=== PATIENT | male | born 1970 | race Caucasian/White ===

== ENCOUNTER 2019-03-23 21:58 | Observation (INO) | payer SELFPAY ==
[2019-03-23] MEDS ORDERED: ASPIRIN 81 MG TABLET, CHEWABLE PO ONE (22:11)
--- NOTE | 2019-03-23 22:13 | ER Document Report ---
ED Medical Screen (RME) - General Stated Complaint: CHEST PAIN Time Seen by Provider: 03/23/19 22:11 Mode of Arrival: Wheelchair Information source: Patient Notes: 49-year-old male with history of cardiac disease multiple stent placements open heart surgery diabetes presents to the emergency department with left-sided chest pain nausea with pain that radiates down his left arm and up his left neck that started approximately 15 minutes ago. Reports last OR in July. I have greeted and performed a rapid initial assessment of this patient. A comprehensive ED assessment and evaluation of the patient, analysis of test results and completion of the medical decision making process will be conducted by additional ED providers. Dictation of this chart was performed using voice recognition software; therefore, there may be some unintended grammatical errors.
--- NOTE | 2019-03-23 23:16 | RADIOLOGY REPORT (SQ) ---
EXAM DESCRIPTION: XR CHEST 1 VIEW COMPLETED DATE/TME: 03/23/2019 22:11 CLINICAL HISTORY: 49 years, Male, cp, sob COMPARISON: None. NUMBER OF VIEWS: 2 TECHNIQUE: Frontal view chest LIMITATIONS: None. FINDINGS: Heart size is normal. Sternotomy wires are present. The uppermost wires are fractured. The lungs are hyperinflated but clear. There is no pneumothorax IMPRESSION: Underlying hyperinflation. Lungs are clear copyright 2010 [employer]- All Rights Reserved
[2019-03-23 23:32] LABS: ABSOLUTE EOSINOPHILS # (AUTO) 0.3 10^3/uL (0.0-0.6); ABSOLUTE MONOCYTES (AUTO) 0.9 10^3/uL (0.1-1.4); ABSOLUTE NEUT (AUTO) 7.2 10^3/uL (1.7-8.2); BASOPHILS % (AUTO) 0.3 % (0-2); EOSINOPHILS % (AUTO) 2.1 % (0-6); HEMATOCRIT 46.9 % (37.9-51.0); HEMOGLOBIN 16.1 g/dL (13.5-17.0); LYMPHOCYTES % (AUTO) 32.3 % (13-45); MEAN CORPUSCULAR HEMOGLOBIN 29.2 pg (27.0-33.4); MEAN CORPUSCULAR HGB CONC 34.3 g/dL (32.0-36.0); MEAN CORPUSCULAR VOLUME 85 fl (80-97); MONOCYTES % (AUTO) 6.9 % (3-13); PLATELET COUNT 214 10^3/uL (150-450); RED BLOOD COUNT 5.52 10^6/uL (4.35-5.55); RED CELL DISTRIBUTION WIDTH 14.3 % (11.5-14.0); SEGMENTED NEUTROPHILS % (AUTO) 58.4 % (42-78); TOTAL CELLS COUNTED % (AUTO) 100 %; WHITE BLOOD COUNT 12.3 10^3/uL (4.0-10.5)
[2019-03-23 23:44] LABS: INTERNATIONAL RATION (INR) 1.02; PROTHROMBIN TIME 13.5 SEC (11.4-15.4)
[2019-03-23] MEDS: NITROGLYCERIN 0.4 MG/TAB 25 TAB/BOTTLE SL PRN (23:47)
[2019-03-23 23:49] LABS: ALBUMIN 4.1 g/dL (3.5-5.0); ALKALINE PHOSPHATASE 111 U/L (38-126); ANION GAP 12 (5-19); ASPARTATE AMINO TRANSFERASE 18 U/L (17-59); BILIRUBIN,DIRECT 0.1 mg/dL (0.0-0.4); BILIRUBIN,TOTAL 0.4 mg/dL (0.2-1.3); BLOOD UREA NITROGEN 8 mg/dL (7-20); CALCIUM 9.9 mg/dL (8.4-10.2); CARBON DIOXIDE 22 mmol/L (22-30); CHLORIDE 104 mmol/L (98-107); CREATINE KINASE 48 U/L (55-170); GLUCOSE 260 mg/dL (75-110); POTASSIUM 3.6 mmol/L (3.6-5.0); TOTAL PROTEIN 7.3 g/dL (6.3-8.2)
[2019-03-23 23:57] LABS: CREATINE KINASE MB 0.49 ng/mL (<4.55)
[2019-03-23 23:58] LABS: TROPONIN I < 0.012 ng/mL
[2019-03-24] MEDS: NITROGLYCERIN 0.4 MG/TAB 25 TAB/BOTTLE SL PRN
--- NOTE | 2019-03-24 00:10 | RADIOLOGY REPORT (SQ) ---
EXAM DESCRIPTION: CT HEAD WITHOUT IV CONTRAST COMPLETED DATE/TME: 03/23/2019 23:24 CLINICAL HISTORY: numbness CVA COMPARISON: None available TECHNIQUE: Axial CT of the head obtained from the skull apex to the skull base without contrast. FINDINGS: No acute intracranial hemorrhage identified. No mass, mass effect, shift of the midline, abnormal extra-axial fluid collection or CT evidence of acute ischemic change identified. The ventricular system is unremarkable. No acute abnormalities of the supratentorial white matter, basal ganglia, cerebellum, or brainstem. Mucosal thickening of the left maxillary sinus. Mastoid air cells are well aerated. No skull fracture identified. Visualized orbits and globes are unremarkable. DLP:990.56 mGy-cm IMPRESSION: 1. No acute intracranial abnormality identified. This exam was performed according to our departmental dose-optimization program, which includes automated exposure control, adjustment of the mA and/or kV according to patient size and/or use of iterative reconstruction technique. Reserved
[2019-03-24] MEDS ORDERED: NITROGLYCERIN 2% OINTMENT 1 GM PACKET TP ONE (00:35)
--- NOTE | 2019-03-24 00:41 | ER Document Report ---
ED General - General Chief Complaint: Chest Pain Stated Complaint: CHEST PAIN Time Seen by Provider: 03/23/19 22:11 Mode of Arrival: Wheelchair TRAVEL OUTSIDE OF THE [place] IN LAST 30 DAYS: No - HPI Notes: This is a 49-year-old gentleman with a history of coronary artery disease who presents today with a complaint of substernal chest pain that started around 9:00. Patient states that his pain was radiating down his left arm, associated with nausea and dyspnea. Patient states this feels like his heart pain. He states that he has had 8 stents in the bypass in the past before. Patient also complains of numbness in his left upper and lower extremities. Symptoms are started around the same time. He denies any focal weakness. He denies any speech changes. He denies any visual changes. He denies any headache. He describes the symptoms as moderate. There are no obvious aggravating or relieving factors. He is visiting from [place]. - Related Data Allergies/Adverse Reactions: No Known Allergies Allergy (Unverified 03/23/19 22:21) Past Medical History - General Information source: Patient - Social History Smoking Status: Current Every Day Smoker Chew tobacco use (# tins/day): No Frequency of alcohol use: None Drug Abuse: Marijuana Family History: Hypertension Patient has suicidal ideation: No Patient has homicidal ideation: No Review of Systems - Review of Systems Cardiovascular: Chest pain. denies: Palpitations, Heart racing Respiratory: denies: Cough Gastrointestinal: denies: Abdominal pain, Diarrhea, Vomiting Neurological/Psychological: Numbness, Tingling. denies: Paralysis, Headaches, Speech impairment -: Yes All other systems reviewed and negative Physical Exam - Vital signs Vitals: Temp Pulse Resp BP Pulse Ox 97.8 F 84 20 159/101 H 99 03/23/19 22:13 03/23/19 22:13 03/23/19 22:13 03/23/19 22:13 03/23/19 22:13 - General General appearance: Appears well, Alert - Respiratory Respiratory status: No respiratory distress Chest status: Nontender Breath sounds: Normal Chest palpation: Normal - Cardiovascular Rhythm: Regular Heart sounds: Normal auscultation Murmur: No - Abdominal Inspection: Normal Distension: No distension Bowel sounds: Normal Tenderness: Nontender Organomegaly: No organomegaly - Back Back: Normal, Nontender - Neurological Neuro grossly intact: Yes Cognition: Normal Orientation: AAOx4 Sharon Coma Scale Eye Opening: Spontaneous Sharon Coma Scale Verbal: Oriented Mcintyre Coma Scale Motor: Obeys Commands Sharon Coma Scale Total: 15 Speech: Normal Cranial nerves: Normal Motor strength normal: LUE, RUE, LLE, RLE Sensory: Altered light touch - There is subjective decreased sensation of the left upper and lower extremity. No other focal neurologic findings. - Skin Skin Temperature: Warm Skin Moisture: Dry Skin Color: Normal Course - Re-evaluation Re-evalutation: 03/24/19 00:39 Differential diagnosis includes acute coronary syndrome versus atypical chest pain versus anxiety. 2. Question CVA. Patient would not be a candidate for TPA given low NIHSS of 1. Will get CT scan. Will need to rule out acute coronary syndrome. EKG shows normal sinus rhythm at 87 bpm. Normal axis. Normal intervals. No acute injury pattern. 00:40 Patient reevaluated. He is pain-free after nitroglycerin. Labs and image reviewed and discussed. 03/24/19 01:03 Patient's care discussed with Dr. Mcdonald. Patient will be admitted for ACS rule out. - Vital Signs Vital signs: Temp Pulse Resp BP Pulse Ox 97.8 F 84 20 164/90 H 99 03/23/19 22:13 03/23/19 22:13 03/24/19 00:01 03/24/19 00:01 03/24/19 00:01 - Laboratory Result Diagrams: 03/23/19 22:49 03/23/19 22:49 Laboratory results interpreted by me: 03/23/19 03/23/19 22:49 22:49 WBC 12.3 H RDW 14.3 H Glucose 260 H Creatine Kinase 48 L Discharge - Discharge Clinical Impression: Precordial chest pain, Paresthesias Condition: Stable Disposition: ADMITTED OBSERVATION Admitting Provider: Tamara (Hospitalist) Unit Admitted: [facility] ED NIH Stroke Scale - NIH Stroke Scale *: 1. NIH scale should be completed with appropriate accompanying assessment too ls. *: 2. The NIH should reflect what the patient is capable of doing and should not be coached by the clinician. 1a. Level of Consciousness: 0=Alert;keenly responsive -: 1=Drowsy -: 2=Obtunded -: 3=Coma/unresponsive or reflex to noxious stimuli. 1a. Responses: 0 1b. Orientation Questions: a. What month is it? -: b. How old are you? -: 0=Answers both questions correctly. -: 1=Answers one question correctly or patient is intubated or has orotracheal trauma. -: 2=Answers neither question correctly. 1b. Responses: 0 1c. Response to commands: a. Open and close eyes? -: b. 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 -: Credit is given despite weakness. Demonstration of task is permitted. Substitute command if hands cannot be used. -: 0=Performs both tasks correctly -: 1=Performs one task correctly -: 2=Performs neither task correctly 1c. Responses: 0 2. Gaze: Establish eye contact and instruct patient to "Follow my finger" -: 0=Normal -: 1=Partial gaze palsy. Gaze is abnormal in one or both eyes, but where forced deviation or total gaze paresis is not present. -: 2=Forced deviation or total gaze paresis. 2. Responses: 0 3. Visual Blanco: Sees fingers in all four quadrants. -: 0=No visual loss. -: 1=Partial hemianopsia. -: 2=Complete hemianopsia. -: 3=Bilateral hemianopsia (including Cortical blindness) 3. Responses: 0 4. Facial Movement: Instruct patient to: -: a. Show me your teeth -: b. Raise your eyebrows -: c. Close your eyes -: d. Smile -: 0=Normal symmetrical movement -: 1=Minor paralysis (flattened nasolabial fold, asymmetry on smiling). -: 2=Partial paralysis (total or near total paralysis of lower face). -: 3=Complete paralysis of upper and lower face 4. Responses: 0 5. Motor functions (left arm): Alternate sides and extend each arm with palms down (90 degrees if sitting or 45 degrees for supine). -: 0=No drift;limb holds for full 10 seconds. -: 1=Drift; limb holds but drifts down before full 10 seconds, but does not hit bed. -: 2=Some effort against gravity; limb cannot get to or maintain position. -: 3=No effort against gravity; limb falls. -: 4=No movement. -: UN=Amputation, joint fusion, explain in comments. 5. Responses (left arm): 0 5. Motor Functions (right arm): Alternate sides and extend each arm with palms down (90 degrees if sitting or 45 degrees for supine). -: 0=No drift;limb holds for full 10 seconds. -: 1=Drift; limb holds but drifts down before full 10 seconds, but does not hit bed. -: 2=Some effort against gravity; limb cannot get to or maintain position. -: 3=No effort against gravity; limb falls. -: 4=No movement. -: UN=Amputation, joint fusion, explain in comments. 5. Responses (right arm): 0 6. Motor Functions (left leg): With patient lying supine, alternate sides and extend each leg (30 degrees always while supine). -: 0=No drift, leg holds position for full 5 seconds -: 1=Drift; leg falls before full 5 seconds but does not hit bed. -: 2=Some effort against gravity, leg falls to bed but some effort against gravity. -: 3=No effort against gravity, leg falls to bed immediately. -: 4=No movement. -: UN=Amputation, joint fusion; explain in comments. 6. Responses (left leg): 0 6. Motor Functions (right leg): With patient lying supine, alternate sides and extend each leg (30 degrees always while supine). -: 0=No drift, leg holds position for full 5 seconds -: 1=Drift; leg falls before full 5 seconds but does not hit bed. -: 2=Some effort against gravity, leg falls to bed but some effort against gravity. -: 3=No effort against gravity, leg falls to bed immediately. -: 4=No movement. -: UN=Amputation, joint fusion; explain in comments. 6. Responses (right leg): 0 7. Limb Ataxia: With eyes open instruct patient to: -: a. "Touch your finger to your nose". -: b. "Touch your heel to your bolanos" -: 0=Absent -: 1=Present in one limb. -: 2=Present in two limbs. -: UN=Amputation or joint fusion; explain in comments. 7. Responses: 0 8. Sensory: Test sensation using pinprick or noxious stimuli. Test as many body parts as possible. -: 0=Normal;no sensory loss -: 1=Mile to moderate sensory loss (patient feels pin prick but is less sharp on affected side). -: 2=Severe or total sensory loss. 8. Responses: 1 9. Best Language: Instruct patient to: -: a. "Describe what you see in this picture." -: b. "Name the items in this picture." -: c. "Read these sentences." -: 0=No aphasia, normal -: 1=Mild to moderate aphasia. -: 2=Severe aphasia -: 3=Mute, global aphasia, no usable speech or auditory comprehension. 9. Responses: 0 10. Articulation, Dysarthia: Instruct patient to: -: "Read these words" or "Repeat these words" -: 0=Normal -: 1=Mild to moderate; patient may slur some words but can be understood without difficulty. -: 2=Severe; patients speech so slurred as to be unintelligible in the absence of dysphasia. -: UN=Intubated or other physical barrier, explain in comments. 10. Responses: 0 11. Extinction or inattention: 0=No abnormality -: 1= Visual, tactile, auditory, spatial, or personal inattention or extinction to bilateral simulation in one or the sensory modalities. -: 2=Profound cherelle-inattention or cherelle-inattention to more than one modality; does not recognize own hand. 11. Responses: 0 Total Score: 1
[2019-03-24] MEDS ORDERED: ONDANSETRON HCL INJ/PF 4 MG/2 ML SDV IV PRN (01:21)
[2019-03-24] MEDS ORDERED: DOCUSATE SODIUM 100 MG CAPSULE PO PRN (01:21)
[2019-03-24] MEDS ORDERED: MAGNESIUM HYDROXIDE SUSP 30 ML UDCUP PO PRN (01:21)
[2019-03-24] MEDS ORDERED: ACETAMINOPHEN 325 MG TABLET PO PRN (01:21)
[2019-03-24] MEDS ORDERED: TEMAZEPAM 15 MG CAPSULE PO PRN (01:21)
[2019-03-24] MEDS ORDERED: ONDANSETRON 4 MG TAB.RAPDIS PO PRN (01:21)
[2019-03-24] MEDS ORDERED: MORPHINE SULFATE 10 MG/ML INJ IV PRN ×2 (01:28→01:36)
[2019-03-24] MEDS ORDERED: LEVALBUTEROL HCL NEB 0.63 MG/3 ML AMPUL NEB PRN (01:28)
[2019-03-24] MEDS ORDERED: HYDRALAZINE HCL INJ/PF 20 MG/1 ML SDV IV PRN (01:28)
[2019-03-24] MEDS ORDERED: NITROGLYCERIN 0.4 MG/TAB 25 TAB/BOTTLE SL PRN ×2 (01:28→14:15)
[2019-03-24] MEDS ORDERED: NICOTINE 21 MG/24 HR PATCH.TD24 TD PRN (01:28)
[2019-03-24] MEDS ORDERED: DEXTROSE 50%-WATER 25 GM/50 ML DISP.SYRIN IV PRN ×2 (01:37)
[2019-03-24] MEDS ORDERED: GLUCAGON,HUMAN RECOMB 1 MG INJ IM PRN (01:37)
[2019-03-24] MEDS ORDERED: DEXTROSE 40% GEL 15 GM TUBE PO PRN ×2 (01:37)
[2019-03-24 02:53] LABS: CREATINE KINASE MB 0.53 ng/mL (<4.55)
[2019-03-24 03:00] LABS: TROPONIN I < 0.012 ng/mL
[2019-03-24] MEDS: MORPHINE SULFATE 10 MG/ML INJ IV PRN ×4 (03:08→15:35)
[2019-03-24] MEDS: INSULIN REG, HUMAN 100 UNIT/ML 3 ML VIAL (PYX) SUBCUT PRN ×2 (03:09→14:59)
--- NOTE | 2019-03-24 04:46 | PDOC H&P ---
History of Present Illness Admission Date/PCP: 03/24/2019 01:02 No local PCP Patient complains of: Chest pain History of Present Illness: ARIANE KC is a 49 year old male who presented to the emergency room with acute chest pain beginning at 2100 hrs. on 03/23/2019. Patient admits abrupt ons et of a constant, severe heavy pressure-like pain in his left chest radiating to his left shoulder then up the left side of his neck and down his left arm. Chest pain was accompanied by nausea and dyspnea. He denies other associated signs or symptoms. He does admit to the accompanying symptoms of numbness in his left face, left upper extremity and left lower extremity without weakness, beginning at approximately the same time he experienced the initial chest pain. He admits that the chest pain was very similar to the heart pain he has had with previous cardiac events. He has not identified any aggravating or ameliorating factors for his chest pain. In the emergency room patient was treated with nitroglycerin and had rapid relief of his chest pain. Initial cardiac enzymes and electrocardiogram evaluation showed no evidence of acute cardiac injury or ischemia. A CT scan of the patient's head revealed no evidence for acute stroke or intracranial hemorrhage. Patient was subsequently admitted to observation status for further evaluation and treatment. Past Medical History Cardiac Medical History: Reports: Coronary Artery Disease, Myocardial Infarction, Hyperlipidema, Hypertension Pulmonary Medical History: Denies: Asthma, Chronic Obstructive Pulmonary Disease (COPD) EENT Medical History: Denies: Cataracts, Ears - Hearing aids Neurological Medical History: Reports: Other - Chronic neuropathy in hands and feet bilaterally (chronic pain syndrome) Denies: Hemorrhagic CVA, Ischemic CVA, Seizures Endocrine Medical History: Reports: Diabetes Mellitus Type 2 Denies: Diabetes Mellitus Type 1, Hyperthyroidism, Hypothyroidism Renal/ Medical History: Denies: Chronic Kidney Disease, Nephrolithiasis Malignancy Medical History: Reports: None GI Medical History: Denies: Cirrhosis, Hepatitis Musculoskeltal Medical History: Denies: Arthritis, Gout Skin Medical History: Denies: Eczema, Psoriasis Psychiatric Medical History: Reports: Tobacco Dependency Denies: Alcohol Dependency, Substance Abuse Traumatic Medical History: Reports: None Hematology: Denies: Anemia, Bleeding Tendencies Infectious Medical History: Reports: None Past Surgical History Past Surgical History: Reports: Appendectomy, Cardiac Catheterization, Coronary Artery Bypass Graft, Coronary Stent - X 8, Herniorrhaphy - Incarcerated left inguinal hernia, Other - Urethral stricture Social History Information Source: Patient Lives with: Spouse/Significant other Smoking Status: Current Every Day Smoker Electronic Cigarette use?: No Frequency of Alcohol Use: Rare Hx Recreational Drug Use: No - Medical marijuana Drugs: Marijuana - Uses medical marijuana on a daily basis for control of chronic pain Hx Prescription Drug Abuse: No - Advance Directive Resuscitation Status: Full Code Surrogate healthcare decision maker:: Yaz Kc Family History Family History: CAD, CVA, DM, Hyperlipidemia, Hypertension, Malignancy, Other - Alzheimer's dementia Parental Family History Reviewed: Yes Children Family History Reviewed: No Sibling(s) Family History Reviewed.: Yes Medication/Allergy Allergies/Adverse Reactions: No Known Allergies Allergy (Unverified 03/23/19 22:21) Review of Systems Constitutional: ABSENT: chills, fever(s) Eyes: ABSENT: visual disturbances, other - Eye pain Ears: ABSENT: hearing changes, other - Ear pain Nose, Mouth, and Throat: ABSENT: mouth pain, sore throat Cardiovascular: PRESENT: as per HPI, chest pain. ABSENT: dyspnea on exertion, edema, orthropnea, palpitations Respiratory: PRESENT: dyspnea. ABSENT: cough Gastrointestinal: PRESENT: as per HPI, nausea. ABSENT: abdominal pain, constipation, diarrhea, vomiting Genitourinary: ABSENT: dysuria, hematuria Musculoskeletal: ABSENT: back pain, joint swelling, muscle weakness Integumentary: ABSENT: pruritus, rash Neurological: PRESENT: as per HPI, numbness - Left face, upper and lower extremities. ABSENT: confusion, convulsions, focal weakness, memory loss, syncope Psychiatric: ABSENT: anxiety, depression Endocrine: ABSENT: cold intolerance, heat intolerance Hematologic/Lymphatic: ABSENT: easy bleeding, easy bruising Allergic/Immunologic: ABSENT: seasonal rhinorrhea Physical Exam Vital Signs: Temp Pulse Resp BP Pulse Ox 97.8 F 84 20 164/90 H 99 03/23/19 22:13 03/23/19 22:13 03/24/19 00:01 03/24/19 00:01 03/24/19 00:01 Intake & Output 03/22/19 03/23/19 03/24/19 23:59 23:59 23:59 Weight 101 kg General appearance: PRESENT: no acute distress, cooperative Head exam: PRESENT: atraumatic, normocephalic Eye exam: PRESENT: conjunctiva pink. ABSENT: conjunctival injection, scleral icterus Ear exam: PRESENT: normal external ear exam. ABSENT: bleeding, drainage Mouth exam: PRESENT: dry mucosa, neck supple Neck exam: ABSENT: JVD, thyromegaly, tracheal deviation Respiratory exam: PRESENT: clear to auscultation olinda, symmetrical, unlabored Cardiovascular exam: PRESENT: RRR. ABSENT: clicks, gallop, rubs Pulses: PRESENT: normal radial pulses, normal dorsalis pedis pul Vascular exam: PRESENT: normal capillary refill. ABSENT: pallor GI/Abdominal exam: PRESENT: normal bowel sounds, soft Rectal exam: PRESENT: deferred Extremities exam: ABSENT: joint swelling, pedal edema Musculoskeletal exam: ABSENT: deformity, dislocation Neurological exam: PRESENT: alert, oriented to person, oriented to place, oriented to time, oriented to situation, CN II-XII grossly intact, motor sensory deficit - Subjective decrease in tactile and pain sensation on the left side (face, upper extremity, torso and lower extremity) Psychiatric exam: PRESENT: appropriate affect, normal mood Skin exam: PRESENT: dry, intact, warm. ABSENT: jaundice, rash, urticaria Results Laboratory Results: 03/23/19 22:49 03/23/19 22:49 03/23/19 03/23/19 22:49 22:49 WBC 12.3 H RBC 5.52 Hgb 16.1 Hct 46.9 MCV 85 MCH 29.2 MCHC 34.3 RDW 14.3 H Plt Count 214 Seg Neutrophils % 58.4 Sodium 138.0 Potassium 3.6 Chloride 104 Carbon Dioxide 22 Anion Gap 12 BUN 8 Creatinine 0.57 Est GFR ( Amer) > 60 Glucose 260 H Calcium 9.9 Total Bilirubin 0.4 AST 18 Alkaline Phosphatase 111 Total Protein 7.3 Albumin 4.1 03/23/19 03/23/19 22:49 22:49 Creatine Kinase 48 L CK-MB (CK-2) 0.49 Troponin I < 0.012 Impressions: Chest X-Ray 03/23/19 22:11 IMPRESSION: Underlying hyperinflation. Lungs are clear copyright 2011 [employer]- All Rights Reserved Head CT 03/23/19 23:24 IMPRESSION: 1. No acute intracranial abnormality identified. This exam was performed according to our departmental dose-optimization program, which includes automated exposure control, adjustment of the mA and/or kV according to patient size and/or use of iterative reconstruction technique. Reserved Assessment and Plan - Diagnosis (1) Precordial chest pain Is this a current diagnosis for this admission?: Yes (2) Left sided numbness Is this a current diagnosis for this admission?: Yes (3) Coronary artery disease Qualifiers: Coronary Disease-Associated Artery/Lesion type: [place] artery [place] vs. transplanted heart: [place] heart Associated angina: with unspecified angina Qualified Code(s): I25.119 - Atherosclerotic heart disease of [place] coronary artery with unspecified angina pectoris Is this a current diagnosis for this admission?: Yes (4) Diabetes mellitus type 2 in obese Is this a current diagnosis for this admission?: Yes (5) Hyperlipidemia Qualifiers: Hyperlipidemia type: unspecified Qualified Code(s): E78.5 - Hyperlipidemia, unspecified Is this a current diagnosis for this admission?: Yes (6) Tobacco use disorder, severe, dependence Is this a current diagnosis for this admission?: Yes - Plan Summary Summary: Patient is admitted observation status and will have serial cardiac enzymes performed to evaluate his chest pain. He will be on IMCU and will undergo serial neurologic evaluations for his left-sided numbness and an MRI will be obtained as soon as possible. A carotid Doppler study and echocardiogram will be obtained as part of the evaluation of the patient's left-sided numbness. Patient's chest pain will be treated with nitroglycerin and if needed morphine sulfate 2 to 4 mg IV every 2 hours on a as needed basis using a sliding scale for chest pain. A hemoglobin A1c, lipid profile and a thyroid profile will also be obtained. Further evaluation and treatment will be based upon the results of the aforementioned studies. Before meals and at bedtime Accu-Cheks will be obtained with sliding scale insulin for hyperglycemia and a hypoglycemic protocol in place. Patient will be continued on his usual medications as appropriate for his chronic medical problems. A nicotine replacement patch will be available for the patient's use. Smoking cessation is advised and counseled briefly at the bedside. - Time Time Spent with patient: 25-34 minutes Smoking Cessation Education: 3 to 10 minutes Medications reviewed and adjusted accordingly: Yes Anticipated discharge: Home - Inpatient Certification Based on my medical assessment, after consideration of the patient's comorbidities, presenting symptoms, or acuity I expect that the services needed warrant INPATIENT care.: No I certify that my determination is in accordance with my understanding of Medicare's requirements for reasonable and necessary INPATIENT services [42 CFR 412.3e].: No Medical Necessity: Need Close Monitoring Due to Risk of Patient Decompensation, Need For Continuous Telemetry Monitoring, Need for Neurological Checks
[2019-03-24] MEDS: HEPARIN SOD (PORCINE) 5,000 UNIT/ML 1 ML VIAL SUBCUT SCH ×2 (07:04→14:53)
--- NOTE | 2019-03-24 07:30 | EKG REPORT ---
SEVERITY:- ABNORMAL ECG - SINUS RHYTHM VENTRICULAR PREMATURE COMPLEX NONSPECIFIC IVCD : Confirmed by: Chandu Sahu MD 24-Mar-2019 07:29:20
[2019-03-24 09:00] LABS: CREATINE KINASE MB 0.54 ng/mL (<4.55); DIRECT LDL 74 mg/dL (<100)
[2019-03-24 09:04] LABS: TRIGLYCERIDES 667 mg/dL (<150)
[2019-03-24 09:07] LABS: TROPONIN I < 0.012 ng/mL
[2019-03-24] MEDS ORDERED: FAMOTIDINE 20 MG TABLET PO SCH (10:00)
[2019-03-24] MEDS ORDERED: LORAZEPAM INJ 2 MG/1 ML VIAL IV ONE (10:10)
--- NOTE | 2019-03-24 11:34 | RADIOLOGY REPORT (SQ) ---
EXAM DESCRIPTION: MRI HEAD WITHOUT COMPLETED DATE/TIME: 03/24/2019 11:15 am REASON FOR STUDY: Left arm and leg numbness COMPARISON: CT brain 03/23/2019 TECHNIQUE: Multiplanar imaging includes non-contrasted T1, T2, FLAIR, and diffusion with ADC map seq uences. Images stored on PACS. LIMITATIONS: None. FINDINGS: ANATOMY: N developmental o anomalies. Normal vascular flow voids. Pituitary fossa normal. CSF SPACES: Normal in size and contour. No hemorrhage. CEREBRUM: Sulci and gyri normal in size and contour. Normal white matter signal on FLAIR imaging. No evidence of hemorrhage, mass, or extraaxial fluid collection. POSTERIOR FOSSA: No signal alteration. No hemorrhage. No edema, masses or mass effect. Internal viet tory canals, cerebello-pontine angles, mastoids normal. DIFFUSION IMAGING: Negative for acute or sub-acute infarction. ORBITS: No masses. Globes normal. PARANASAL SINUSES: Circumferential mucous membrane thickening left maxillary sinus from pre-existing sinusitis. OTHER: No other significant finding. IMPRESSION: NORMAL MRI OF THE BRAIN WITHOUT INTRAVENOUS GADOLINIUM CONTRAST. EVIDENCE OF ACUTE STROKE: NO. TECHNICAL DOCUMENTATION: JOB ID: [id number] [employer]- All Rights Reserved Reading location - IP/workstation name: [email or web address]
[2019-03-24] MEDS ORDERED: INFLUENZA QUAD (6MOS+) 2019-20 VAC 0.5 ML SYR IM ONE (12:00)
--- NOTE | 2019-03-24 13:37 | RADIOLOGY REPORT (SQ) ---
EXAM DESCRIPTION: CAROTID DOPPLER COMPLETED DATE/TIME: 03/24/2019 1:19 pm REASON FOR STUDY: Left arm and leg numbness COMPARISON: None. TECHNIQUE: Grayscale ultrasound, Doppler velocity and spectra, and color Doppler images acquired of the extra-cranial carotid and vertebral arteries. Images stored on PACS. LIMITATIONS: None. FINDINGS: RIGHT CAROTID CCA Velocities: Within normal limits. ICA Velocities Peak systolic 86 cm/s. End diastolic 37 cm/s. Proximal ICA/CCA peak systolic ratio 1.5. There is plaque in the carotid bulb and proximal ICA. LEFT CAROTID CCA Velocities: Within normal limits. ICA Velocities Peak systolic 89 cm/s. End diastolic 30 a cm/s. Proximal ICA/CCA peak systolic ratio 1.1. Is plaque in the carotid bulb and proximal ICA. VERTEBRAL ARTERIES: Antegrade flow. Normal waveforms. SUBCLAVIAN ARTERIES: No finding. OTHER: No other significant finding. IMPRESSION: NO HEMODYNAMICALLY SIGNIFICANT STENOSIS. COMMENT: Quality ID #[id number]: Velocity criteria are extrapolated from the diameter data as defined by t he Society of Radiologists in Ultrasound Consensus Conference. Radiology 2003: 229; 340-346. TECHNICAL DOCUMENTATION: JOB ID: [id number] [employer]- All Rights Reserved Reading location - IP/workstation name: [email or web address]
--- NOTE | 2019-03-24 14:36 | PDOC DISCHARGE SUMMARY ---
Impression - Admit/DC Date/PCP Admission Date/Primary Care Provider: 03/24/19 01:18 Discharge Date: 03/24/19 - Discharge Diagnosis (1) Coronary artery disease Is this a current diagnosis for this admission?: Yes (2) Diabetes mellitus type 2 in obese Is this a current diagnosis for this admission?: Yes (3) Hyperlipidemia Is this a current diagnosis for this admission?: Yes (4) Left sided numbness Is this a current diagnosis for this admission?: Yes (5) Paresthesias Is this a current diagnosis for this admission?: Yes (6) Tobacco use disorder, severe, dependence Is this a current diagnosis for this admission?: Yes - Assessment Summary: Patient is admitted observation status and will have serial cardiac enzymes performed to evaluate his chest pain. He will be on IMCU and will undergo serial neurologic evaluations for his left-sided numbness and an MRI will be obtained as soon as possible. A carotid Doppler study and echocardiogram will be obtained as part of the evaluation of the patient's left-sided numbness. Patient's chest pain will be treated with nitroglycerin and if needed morphine sulfate 2 to 4 mg IV every 2 hours on a as needed basis using a sliding scale for chest pain. A hemoglobin A1c, lipid profile and a thyroid profile will also be obtained. Further evaluation and treatment will be based upon the results of the aforementioned studies. Before meals and at bedtime Accu-Cheks will be obtained with sliding scale insulin for hyperglycemia and a hypoglycemic protocol in place. Patient will be continued on his usual medications as appropriate for his chronic medical problems. A nicotine replacement patch will be available for the patient's use. Smoking cessation is advised and counseled briefly at the bedside. - Additional Information Resuscitation Status: Full Code Referrals: [facility] [Provider Group] - 04/01/19 3:15 pm (Please bring ID card, Social Security card and discharge papers.) Prescriptions: Lisinopril 20 mg PO BID #28 tablet Metoprolol Tartrate [Lopressor 50 mg Tablet] 50 mg PO BID #28 Metoprolol Tartrate [Lopressor 50 mg Tablet] 50 mg PO BID #28 tablet Gabapentin [Neurontin 300 mg Capsule] 300 mg PO Q6 #56 cap Paroxetine HCl [Paxil] 40 mg PO DAILY #14 Paroxetine HCl [Paxil 20 mg Tablet] 40 mg PO DAILY #14 tablet Lisinopril [Prinivil 10 mg Tablet] 20 mg PO BID #1 tablet Simvastatin 80 mg PO QHS #14 tablet Lisinopril [Zestril] 20 mg PO BID #28 Home Medications: Albuterol Sulfate [Proair HFA Inhalation Aerosol 8.5 gm MDI] 1 puff IH Q4HP PRN 03/24/19 Aspirin [Aspirin 325 mg Tablet] 325 mg PO DAILY 03/24/19 Famotidine [Pepcid 20 mg Tablet] 20 mg PO Q12 tablet 03/24/19 Gabapentin [Neurontin 300 mg Capsule] 300 mg PO Q6 #56 cap 03/24/19 Lisinopril 20 mg PO BID #28 tablet 03/24/19 Lisinopril [Prinivil 10 mg Tablet] 20 mg PO BID #1 tablet 03/24/19 Lisinopril [Zestril] 20 mg PO BID #28 03/24/19 Metformin HCl [Glucophage] 1,000 mg PO BID 03/24/19 Metoprolol Tartrate [Lopressor 50 mg Tablet] 50 mg PO BID #28 03/24/19 Metoprolol Tartrate [Lopressor 50 mg Tablet] 50 mg PO BID #28 tablet 03/24/19 Multivitamin [Multiple Vitamins] 1 tab PO DAILY 03/24/19 Nitroglycerin [Nitrostat 0.4 mg (1/150 Gr) Tabs 25/Bottle] 0.4 mg SL Q5MP PRN 03/24/19 [place]-3 Fatty Acids/Fish Oil [Fish Oil 1,000 mg Capsule] 1 cap PO DAILY 03/24/19 Paroxetine HCl [Paxil 20 mg Tablet] 40 mg PO DAILY #14 tablet 03/24/19 Paroxetine HCl [Paxil] 40 mg PO DAILY #14 03/24/19 Promethazine HCl [Phenergan 25 mg Tablet] 25 mg PO Q4HP PRN 03/24/19 Simvastatin 80 mg PO QHS #14 tablet 03/24/19 Turmeric Root Extract [Turmeric] 500 mg PO DAILY 03/24/19 History of Present Illiness History of Present Illness: ARIANE KC is a 49 year old male with a history of coronary artery disease. He presented with chest pain as well as diffuse numbness on the right side of his face that he said went to his hand. Imaging studies of the brain were negative. First troponin was less than 0.012. The patient was referred to the hospital service for admission. Hospital Course Hospital Course: The patient had an unremarkable hospital course. Scans of the brain were negative for acute stroke. The 3 troponins were less than 0.012. The numbness dissipated by discharge. Physical Exam Vital Signs: Temp Pulse Resp BP Pulse Ox 97.3 F 91 16 144/81 H 96 03/24/19 02:57 03/24/19 08:00 03/24/19 08:00 03/24/19 08:00 03/24/19 08:00 Intake & Output 03/23/19 03/24/19 03/25/19 06:59 06:59 06:59 Intake Total 422 Balance 422 Weight 97.9 kg General appearance: PRESENT: no acute distress, other - sleepy from medication for MRI Respiratory exam: PRESENT: clear to auscultation olinda. ABSENT: rales, rhonchi, wheezes Cardiovascular exam: PRESENT: RRR, +S1, +S2 Extremities exam: PRESENT: full ROM. ABSENT: joint swelling, pedal edema Musculoskeletal exam: PRESENT: ambulatory, normal inspection Neurological exam: PRESENT: alert, awake, oriented to person, oriented to place, oriented to time, oriented to situation Psychiatric exam: PRESENT: appropriate affect. ABSENT: agitated, anxious Results Laboratory Results: WBC 12.3 10^3/uL (4.0-10.5) H 03/23/19 22:49 RBC 5.52 10^6/uL (4.35-5.55) 03/23/19 22:49 Hgb 16.1 g/dL (13.5-17.0) 03/23/19 22:49 Hct 46.9 % (37.9-51.0) 03/23/19 22:49 MCV 85 fl (80-97) 03/23/19 22:49 MCH 29.2 pg (27.0-33.4) 03/23/19 22:49 MCHC 34.3 g/dL (32.0-36.0) 03/23/19 22:49 RDW 14.3 % (11.5-14.0) H 03/23/19 22:49 Plt Count 214 10^3/uL (150-450) 03/23/19 22:49 Lymph % (Auto) 32.3 % (13-45) 03/23/19 22:49 [place] % (Auto) 6.9 % (3-13) 03/23/19 22:49 Eos % (Auto) 2.1 % (0-6) 03/23/19 22:49 Baso % (Auto) 0.3 % (0-2) 03/23/19 22:49 Absolute Neuts (auto) 7.2 10^3/uL (1.7-8.2) 03/23/19 22:49 Absolute Lymphs (auto) 4.0 10^3/uL (0.5-4.7) 03/23/19 22:49 Absolute Monos (auto) 0.9 10^3/uL (0.1-1.4) 03/23/19 22:49 Absolute Eos (auto) 0.3 10^3/uL (0.0-0.6) 03/23/19 22:49 Absolute Basos (auto) 0.0 10^3/uL (0.0-0.2) 03/23/19 22:49 Seg Neutrophils % 58.4 % (42-78) 03/23/19 22:49 PT 13.5 SEC (11.4-15.4) 03/23/19 22:49 INR 1.02 03/23/19 22:49 Sodium 138.0 mmol/L (137-145) 03/23/19 22:49 Potassium 3.6 mmol/L (3.6-5.0) 03/23/19 22:49 Chloride 104 mmol/L (98-107) 03/23/19 22:49 Carbon Dioxide 22 mmol/L (22-30) 03/23/19 22:49 Anion Gap 12 (5-19) 03/23/19 22:49 BUN 8 mg/dL (7-20) 03/23/19 22:49 Creatinine 0.57 mg/dL (0.52-1.25) 03/23/19 22:49 Est GFR ( Amer) > 60 (>60) 03/23/19 22:49 Est GFR (MDRD) Non-Af > 60 (>60) 03/23/19 22:49 Glucose 260 mg/dL (75-110) H 03/23/19 22:49 POC Glucose 232 mg/dL (70-110) H 03/24/19 13:31 Hemoglobin A1c % 10.8 % (4.7-6.0) H 03/24/19 07:38 Calcium 9.9 mg/dL (8.4-10.2) 03/23/19 22:49 Total Bilirubin 0.4 mg/dL (0.2-1.3) 03/23/19 22:49 Direct Bilirubin 0.1 mg/dL (0.0-0.4) 03/23/19 22:49 Neonat Total Bilirubin Not Reportable 03/23/19 22:49 Neonat Direct Bilirubin Not Reportable 03/23/19 22:49 Neonat Indirect Bili Not Reportable 03/23/19 22:49 AST 18 U/L (17-59) 03/23/19 22:49 ALT 21 U/L (<50) 03/23/19 22:49 Alkaline Phosphatase 111 U/L (38-126) 03/23/19 22:49 Creatine Kinase 47 U/L (55-170) L 03/24/19 07:38 CK-MB (CK-2) 0.54 ng/mL (<4.55) 03/24/19 07:38 Troponin I < 0.012 ng/mL 03/24/19 07:38 Total Protein 7.3 g/dL (6.3-8.2) 03/23/19 22:49 Albumin 4.1 g/dL (3.5-5.0) 03/23/19 22:49 Triglycerides 667 mg/dL (<150) H 03/24/19 07:38 Cholesterol 199.40 mg/dL (0-200) 03/24/19 07:38 LDL Cholesterol Direct 74 mg/dL (<100) 03/24/19 07:38 VLDL Cholesterol, Calc UNABLE TO CALCULATE 03/24/19 07:38 HDL Cholesterol 21 mg/dL (>40) L 03/24/19 07:38 03/23/19 03/24/19 03/24/19 22:49 02:14 07:38 CK-MB (CK-2) 0.49 0.53 0.54 Troponin I < 0.012 < 0.012 < 0.012 Impressions: Chest X-Ray 03/23/19 22:11 IMPRESSION: Underlying hyperinflation. Lungs are clear copyright 2011 [employer]- All Rights Reserved Head CT 03/23/19 23:24 IMPRESSION: 1. No acute intracranial abnormality identified. This exam was performed according to our departmental dose-optimization program, which includes automated exposure control, adjustment of the mA and/or kV according to patient size and/or use of iterative reconstruction technique. Reserved Head MRI 03/24/19 00:00 IMPRESSION: NORMAL MRI OF THE BRAIN WITHOUT INTRAVENOUS GADOLINIUM CONTRAST. EVIDENCE OF ACUTE STROKE: NO. Carotid Doppler Study 03/24/19 13:19 IMPRESSION: NO HEMODYNAMICALLY SIGNIFICANT STENOSIS. Plan Health Concerns: Progression of coronary artery disease. Numbness could have been anxiety. It is doubtful it was [employer] related. The patient is probably not being completely truthful with his psychiatrist. He needs to be more honest and the need to increase his treatment for depression and anxiety. Plan of Treatment: Follow-up with cardiology. Continue current medications. Maximize statin therapy. Also follow-up with primary care provider. Goals: Get statins to goal. Better control of his anxiety and depression. Time Spent: Greater than 30 Minutes Stroke Is this a Stroke Patient?: No Acute Heart Failure - Is this a Heart Failure Patient?: No
[2019-03-24 14:57] LABS: CREATINE KINASE MB 0.49 ng/mL (<4.55)
[2019-03-24 15:03] LABS: TROPONIN I < 0.012 ng/mL
[2019-03-24 16:42] VITALS: BP 148/74
[2019-03-24] MEDS ORDERED: GABAPENTIN 300 MG CAPSULE PO SCH (18:00)
[2019-03-24] MEDS ORDERED: METFORMIN HCL 500 MG TABLET PO SCH (18:00)
[2019-03-24] MEDS ORDERED: METOPROLOL TARTRATE 50 MG TABLET PO SCH (18:00)
[2019-03-24] MEDS ORDERED: LISINOPRIL 10 MG TABLET PO SCH (18:00)
[2019-03-24] MEDS ORDERED: (PENDING PHARMACY ID) (Lisinopril [Zestril] 20 MG) PO SCH (18:00)
--- NOTE | 2019-03-24 20:52 | XCELERA REPORT ---
[address] [address] Transthoracic Echocardiogram Report Name: ARIANE KC Age: 49 yrs Gender: Male : 1970 Patient Status: Inpatient Patient Location: [address] [place], [place] [id number] Study Date: 03/24/2019 11:22 AM Height: 72 in Weight: 214 lb BSA: 2.2 m2 Procedure: A two-dimensional transthoracic echocardiogram with color flow and Doppler was performed. Study Quality: Fair. Reason For Study: Left arm and leg numbness History: CVA. Ordering Physician: DARREN TAFOYA Performed By: Maxine Morales Interpretation Summary There is no obvious cardiac source of embolus noted on this transthoracic echocardiogram. Follow-up with a SAMUEL is suggested if cardiac source is still suspected. The left ventricle is normal in size. There is mild concentric left ventricular hypertrophy. LV EF is 60% Left ventricular systolic function is normal. Doppler measurements suggest impaired left ventricular relaxation, which is associated with grade I/IV or mild diastolic dysfunction The left ventricular wall motion is normal. There is no thrombus. No ASD ,VSD , or PFO seen. The right ventricle is normal in size and function. The right atrium is normal. The left atrial size is normal. There is no evidence of mitral valve prolapse. There is no vegetation seen on the mitral valve. There is no mitral valve stenosis. There is a trace amount of mitral regurgitation There is no aortic valvular vegetation. There is aortic sclerosis without aortic stenosis. There is no aortic valve stenosis There is no LVOT obstruction. No aortic regurgitation is present. There is no tricuspid stenosis. There is a trace to mild amount of tricuspid regurgitation Right ventricular systolic pressure is normal. RVSP is 21 to 26 mm of Hg , with RA mean of 5 to 10. There is no pulmonic valvular stenosis. There is a trace amount of pulmonic regurgitation The aortic root is normal size. The inferior vena cava appeared normal and decreased > 50% with respiration (RAP 5-10 mmHg) There is no pericardial effusion. There is no obvious cardiac source of embolus noted on this transthoracic echocardiogram. Follow-up with a SAMUEL is suggested if cardiac source is still suspected MMode/2D Measurements & Calculations RVDd: 3.1 cm LVIDd: 4.4 cm FS: 26.0 % Ao root diam: 3.1 cm IVSd: 1.2 cm LVIDs: 3.3 cm EDV(Teich): 90.0 ml Ao root area: 7.4 cm2 LVPWd: 1.2 cm ESV(Teich): 43.9 ml EF(Teich): 51.2 % Doppler Measurements & Calculations MV E max belkys: MV dec slope: Ao V2 max: LV V1 max P.1 cm/sec 348.3 cm/sec2 122.5 cm/sec 3.4 mmHg MV A max belkys: MV dec time: 0.18 sec Ao max PG: LV V1 max: 74.6 cm/sec 6.0 mmHg 92.9 cm/sec MV E/A: 0.82 PA V2 max: TR max belkys: 101.3 cm/sec 199.5 cm/sec PA max P.1 mmHg TR max P.0 mmHg Left Ventricle The left ventricle is normal in size. There is mild concentric left ventricular hypertrophy. LV EF is 60%. Left ventricular systolic function is normal. Doppler measurements suggest impaired left ventricular relaxation, which is associated with grade I/IV or mild diastolic dysfunction. The left ventricular wall motion is normal. There is no thrombus. No ASD ,VSD , or PFO seen. Right Ventricle The right ventricle is normal in size and function. Atria The right atrium is normal. The left atrial size is normal. Mitral Valve There is no evidence of mitral valve prolapse. There is no vegetation seen on the mitral valve. There is no mitral valve stenosis. There is a trace amount of mitral regurgitation. Aortic Valve There is no aortic valvular vegetation. There is aortic sclerosis without aortic stenosis. There is no aortic valve stenosis. There is no LVOT obstruction. No aortic regurgitation is present. Tricuspid Valve There is no tricuspid stenosis. There is a trace to mild amount of tricuspid regurgitation. Right ventricular systolic pressure is normal. RVSP is 21 to 26 mm of Hg , with RA mean of 5 to 10. Pulmonic Valve There is no pulmonic valvular stenosis. There is a trace amount of pulmonic regurgitation. Great Vessels The aortic root is normal size. The inferior vena cava appeared normal and decreased > 50% with respiration (RAP 5-10 mmHg). Effusions There is no pericardial effusion. : DARREN TAFOYA, Stefania
[2019-03-25] MEDS ORDERED: PAROXETINE HCL 20 MG TABLET PO SCH (10:00)
[2019-03-25] MEDS ORDERED: (PENDING PHARMACY ID) (Omega-3 Fatty Acids/Fish Oil [Fish Oil 1,000 Mg Capsule] 1 CAP) PO SCH (10:00)
[2019-03-25] MEDS ORDERED: ASPIRIN 325 MG TABLET PO SCH (10:00)
[2019-03-25] MEDS ORDERED: OMEGA-3 ACID ETHYL ESTERS 1 GM CAPSULE PO SCH (10:00)
== END 2019-03-24 16:49 | disposition home or self-care (01) ==
LOC: ER 21:58 → EH 03-24 01:18 → 3W 03-24 02:55
PROVIDERS: ADMIT Emergency Medicine; ATTEND Emergency Medicine
DX: I25.119 Atherosclerotic heart disease of native coronary artery with unspecified angina pectoris (principal); E11.41 Type 2 diabetes mellitus with diabetic mononeuropathy; E66.9 Obesity, unspecified; E78.5 Hyperlipidemia, unspecified; R20.0 Anesthesia of skin; R20.2 Paresthesia of skin; F17.200 Nicotine dependence, unspecified, uncomplicated; F32.9 Major depressive disorder, single episode, unspecified; F41.9 Anxiety disorder, unspecified; I25.2 Old myocardial infarction; G89.4 Chronic pain syndrome; R29.701 NIHSS score 1; Z79.82 Long term (current) use of aspirin; Z79.899 Other long term (current) drug therapy; Z79.84 Long term (current) use of oral hypoglycemic drugs; Z95.5 Presence of coronary angioplasty implant and graft; Z95.1 Presence of aortocoronary bypass graft; Z23 Encounter for immunization; Z82.49 Family history of ischemic heart disease and other diseases of the circulatory system; Z82.3 Family history of stroke
CPT/HCPCS: 93005; 99285; 36415; 82553 ×2; 82962; 82550 ×2; 85025; 85610; 80053; 84484 ×2; 83036; 80061; 93306; 93880; 70551; 71045; 70450; 90686; 93010; G0378 ×2; J1644; J2270; J2060; J1815; J3490; J2405